=== PATIENT | female | born 2000 | race African-American/Black ===

== ENCOUNTER 2020-04-18 17:52 | Emergency (ER) | payer OTHER ==
[2020-04-18 18:12] VITALS: BMI 25.8
[2020-04-18] MEDS ORDERED: ACETAMINOPHEN 500 MG TABLET (FP) PO ONE (18:31)
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
[2020-04-18] MEDS ORDERED: ACETAMINOPHEN 325 MG TABLET (FP) ONE (18:41)
[2020-04-18 20:59] VITALS: BP 120/76; PULSE 91; TEMP 98.1
== END 2020-04-18 20:45 | disposition home or self-care (01) ==
LOC: JER 17:52
DX: M54.2 Cervicalgia (principal); V87.7XXA Person injured in collision between other specified motor vehicles (traffic), initial encounter
CPT/HCPCS: 76815-TC; 99284-25

== ENCOUNTER 2020-07-30 10:25 | Inpatient (IN) | payer OTHER ==
[2020-07-30] MEDS ORDERED: DINOPROSTONE 10 MG VAGINAL SUPPOSITORY VG ONE (11:00)
[2020-07-30 11:37] VITALS: BMI 32.0
[2020-07-30 12:09] LABS: BASO % 0.5 % (0-2.0); EOS % 0.5 % (0-4.5); HEMATOCRIT 32.1 % (32.4-45.2); HEMOGLOBIN 10.8 GM/dL (10.7-15.3); LYMPH % 17.1 % (8-40); MCH 23.1 pg (25.7-33.7); MCHC 33.6 g/dl (32.0-36.0); MEAN CELL VOLUME 68.8 fl (80-96); MEAN PLT VOLUME 12.2 fl (7.5-11.1); MONO % 13.2 % (3.8-10.2); NEUT % 68.7 % (42.8-82.8); PLATELET COUNT 199 K/MM3 (134-434); RBC 4.67 M/mm3 (3.60-5.2); RDW 15.2 % (11.6-15.6); WHITE BLOOD COUNT 6.2 K/mm3 (4.0-10.0)
[2020-07-30 12:11] LABS: RETICULOCYTES 1.89 % (0.5-1.5)
[2020-07-30 12:23] LABS: INR 0.96 (0.83-1.09); PROTHROMBIN TIME (PATIENT) 11.8 SEC (9.7-13.0)
[2020-07-30 12:25] LABS: ACTIVATED PTT 27.9 SECONDS (25.2-36.5)
[2020-07-30 12:29] LABS: BLOOD UREA NITROGEN 10.4 mg/dL (7-18); CALCIUM 9.3 mg/dL (8.5-10.1); GAMMA GLUTAMYL TRANSPEPTIDASE 13 U/L (5-85)
[2020-07-30 12:32] LABS: SGOT/AST 16 U/L (15-37); SGPT/ALT 11 U/L (13-61); URIC ACID 5.1 mg/dL (2.6-7.2)
[2020-07-30 12:33] LABS: CREATININE 0.7 mg/dL (0.55-1.3)
[2020-07-30 12:43] LABS: EPI CELLS >36 /uL (0-25.1); HYALINE CASTS 3 /uL (0-3.1); URINE APPEARANCE Error; URINE BACTERIA 2942 /uL (0-1359); URINE BILIRUBIN NEGATIVE (NEGATIVE); URINE COLOR YELLOW; URINE GLUCOSE (UA) NEGATIVE (NEGATIVE); URINE KETONE NEGATIVE (NEGATIVE); URINE LEUK ESTERASE NEGATIVE (NEGATIVE); URINE NITRITE NEGATIVE (NEGATIVE); URINE PROTEIN 1+ (NEGATIVE); URINE RBC 11 /uL (0-23.9); URINE UROBILINOGEN 0.2 mg/dL (0.2-1.0)
[2020-07-30] MEDS ORDERED: INSULIN (LEVEMIR) 100 UNITS/ML UNITS SQ ONE (12:55)
[2020-07-30] MEDS: ELECTROLYTE-148 SOLN 1,000 ML IV SCH (16:40)
[2020-07-30] MEDS: DEXTROSE 5%-NORMAL SALINE 1,000 ML IV SCH (17:00)
[2020-07-30] MEDS ORDERED: PROMETHAZINE HCL 25 MG/1 ML VIAL ONE (21:27)
[2020-07-30] MEDS ORDERED: BUTORPHANOL TARTRATE 1 MG/ML VIAL ONE ×2 (21:27)
[2020-07-30] MEDS ORDERED: BUTORPHANOL TARTRATE 2 MG/ML VIAL IM PRN (21:34)
[2020-07-30] MEDS ORDERED: PROMETHAZINE HCL 25 MG/1 ML VIAL IVPB PRN (21:35)
[2020-07-30] MEDS ORDERED: OXYTOCIN 20 UNITS in 0.9% NS 20 UNIT/1,000 ML INFUS.BAG IV ONE (22:52)
[2020-07-30] MEDS ORDERED: OXYTOCIN 30 UNITS in 0.9% NS 30 UNIT/500 ML INFUS.BAG IVPB ONE (22:56)
[2020-07-30] MEDS: OXYTOCIN 30 UNITS in 0.9% NS 30 UNIT/500 ML INFUS.BAG IVPB SCH (23:00)
[2020-07-31] MEDS ORDERED: FENTANYL/BUPIVACAINE/NS/PF - PCEA - 50 ML DISP.SYRIN EP ONE ×3 (10:34→20:07)
[2020-07-31] MEDS ORDERED: PCA PUMP NR ONE ×2 (10:34→20:07)
[2020-07-31] MEDS: SODIUM CHLORIDE 1,000 ML IV SCH ×5 (10:40→11:50)
[2020-07-31] MEDS ORDERED: BUPIVACAINE HCL/PF 0.25% (2.5MG/ML) 10 ML VIAL ONE ×2 (10:43→15:56)
[2020-07-31] MEDS: FENTANYL/BUPIVACAINE/NS/PF - PCEA - 50 ML DISP.SYRIN EP SCH ×2 (11:05→15:49)
[2020-07-31] MEDS ORDERED: NALOXONE HCL 0.4 MG/ML VIAL IVPUSH PRN (11:11)
[2020-07-31] MEDS ORDERED: SODIUM CHLORIDE 100 ML IVPB ONE ×2 (11:31→15:28)
[2020-07-31] MEDS ORDERED: AMPICILLIN SODIUM 2 GM VIAL ONE (11:31)
[2020-07-31] MEDS ORDERED: AMPICILLIN - 2 GM in SODIUM CHLORIDE 100 ML IVPB ONE (12:30)
[2020-07-31] MEDS: DEXTROSE 5%-NORMAL SALINE 1,000 ML IV SCH (13:56)
[2020-07-31] MEDS ORDERED: AMPICILLIN SODIUM 1 GM VIAL ONE ×2 (15:28→20:02)
[2020-07-31] MEDS: AMPICILLIN - 1 GM in SODIUM CHLORIDE 100 ML IVPB SCH ×2 (16:07→20:16)
[2020-07-31] MEDS ORDERED: WITCH HAZEL 50% (TUCKS) 40 PAD/JAR PAD TP PRN (21:35)
[2020-07-31] MEDS ORDERED: METHYLERGONOVINE MALEATE 0.2 MG/1 ML AMP IM PRN (21:35)
[2020-07-31] MEDS ORDERED: IBUPROFEN 800 MG/8 ML IJ IVPB PRN (21:35)
[2020-07-31] MEDS ORDERED: diphenhydrAMINE HCL 25 MG CAPSULE (FP) PO PRN (21:35)
[2020-07-31] MEDS ORDERED: BENZOCAINE 20% 57 GM BOTTLE TP PRN (21:35)
[2020-07-31] MEDS ORDERED: BENZOCAINE 28 GM HEMORRHOIDAL OINTMENT PR PRN (21:35)
[2020-07-31] MEDS ORDERED: OXYTOCIN 20 UNITS in 0.9% NS 20 UNIT/1,000 ML INFUS.BAG IV ONE (22:14)
[2020-07-31] MEDS ORDERED: CEFAZOLIN 2 GM/D5W 2 GM/50 ML ML IVPB ONE (22:14)
[2020-07-31] MEDS ORDERED: LIDO 2%/EPI 1:200000 PRESRVFRE (20 ML SDVIAL) ONE (22:14)
[2020-07-31] MEDS ORDERED: KETOROLAC TROMETHAMINE 30 MG/1 ML VIAL ONE (22:16)
[2020-07-31] MEDS ORDERED: ONDANSETRON 4 MG/2 ML VIAL ONE (22:16)
[2020-07-31] MEDS ORDERED: OXYTOCIN 10 UNITS/ML VIAL ONE (22:37)
[2020-07-31] MEDS ORDERED: morphine SULFATE/PF 1 MG/2 ML (2cc Syringe - QUVA) ONE ×3 (22:43)
[2020-07-31] MEDS: ELECTROLYTE-148 SOLN 1,000 ML IV SCH (23:00)
[2020-08-01 00:20] LABS: CORD PCO2 43.3 mmHg (30-78); CORD pH 7.286 (7.14-7.44)
[2020-08-01 00:21] LABS: CORD BASE EXCESS -6.3 mmol/L (0-2); CORD HCO3 20.2 mmHg (20-29)
[2020-08-01 00:30] LABS: CORD BASE EXCESS -7.2 mmol/L (0-2); CORD HCO3 21.8 mmHg (20-29); CORD PCO2 59.1 mmHg (30-78); CORD pH 7.185 (7.14-7.44)
[2020-08-01] MEDS: AMPICILLIN - 1 GM in SODIUM CHLORIDE 100 ML IVPB SCH (00:34)
[2020-08-01] MEDS: OXYTOCIN 30 UNITS in 0.9% NS 30 UNIT/500 ML INFUS.BAG IVPB SCH (00:36)
[2020-08-01] MEDS ORDERED: ONDANSETRON 4 MG/2 ML VIAL IVPUSH PRN (07:34)
[2020-08-01 09:31] LABS: HEMATOCRIT 26.9 % (32.4-45.2); HEMOGLOBIN 9.1 GM/dL (10.7-15.3); MCHC 33.8 g/dl (32.0-36.0); MEAN CELL VOLUME 68.1 fl (80-96); PLATELET COUNT 175 K/MM3 (134-434); RBC 3.95 M/mm3 (3.60-5.2); RDW 15.4 % (11.6-15.6)
[2020-08-01] MEDS: oxyCODONE HCL 5 MG TABLET PO PRN (21:17)
[2020-08-01] MEDS: SIMETHICONE 80 MG TAB.CHEW (FP) PO PRN (21:17)
[2020-08-01] MEDS: ACETAMINOPHEN 325 MG TABLET (FP) PO PRN (21:18)
[2020-08-01] MEDS ORDERED: HYDROmorphone HCL 2 MG TABLET PO PRN (21:35)
[2020-08-01] MEDS ORDERED: oxyCODONE HCL 5 MG TABLET PO PRN (21:35)
[2020-08-01] MEDS ORDERED: BISACODYL 10 MG SUPP.RECT PR PRN (21:35)
[2020-08-02] MEDS: oxyCODONE HCL 5 MG TABLET PO PRN (03:33)
[2020-08-02] MEDS: ACETAMINOPHEN 325 MG TABLET (FP) PO PRN ×4 (03:34→23:09)
[2020-08-02] MEDS: SIMETHICONE 80 MG TAB.CHEW (FP) PO PRN ×4 (03:35→23:09)
[2020-08-02] MEDS: IBUPROFEN 600 MG TABLET (FP) PO PRN ×3 (10:12→23:10)
[2020-08-02 21:32] VITALS: TEMP 98.2
[2020-08-02] MEDS ORDERED: SENNOSIDES/DOCUSATE COMBO (SENNA PLUS) TABLET (UD) PO PRN (22:00)
[2020-08-03 08:36] LABS: HEMATOCRIT 23.8 % (32.4-45.2); HEMOGLOBIN 8.1 GM/dL (10.7-15.3); MCHC 33.8 g/dl (32.0-36.0); MEAN PLT VOLUME 10.7 fl (7.5-11.1); PLATELET COUNT 175 K/MM3 (134-434); RBC 3.51 M/mm3 (3.60-5.2); RDW 15.2 % (11.6-15.6); WHITE BLOOD COUNT 8.7 K/mm3 (4.0-10.0)
[2020-08-03] MEDS: IBUPROFEN 600 MG TABLET (FP) PO PRN (08:42)
[2020-08-03] MEDS: ACETAMINOPHEN 325 MG TABLET (FP) PO PRN (08:42)
[2020-08-03 10:53] VITALS: BP 125/85; PULSE 90
== END 2020-08-03 14:10 | disposition home or self-care (01) | DRG 540 ==
LOC: JLDR 10:25 → J3W 08-01 00:52
PROVIDERS: ADMIT Obstetrics & Gynecology; ATTEND Obstetrics & Gynecology
PROC: 3E0P7VZ Introduction of Hormone into Female Reproductive, Via Natural or Artificial Opening (ICD-10-PCS; 2020-07-30)
PROC: 10D00Z1 Extraction of Products of Conception, Low, Open Approach (ICD-10-PCS; principal; 2020-07-31)
DX: O24.414 Gestational diabetes mellitus in pregnancy, insulin controlled (principal); O16.3 Unspecified maternal hypertension, third trimester; Z3A.37 37 weeks gestation of pregnancy; O62.0 Primary inadequate contractions; Z37.0 Single live birth; Z91.018 Allergy to other foods
CPT/HCPCS: 36415; 36600; 80048; 81003; 82803; 82962; 82977; 83010; 83036; 84450; 84460; 84550; 85025; 85027; 85032; 85045; 85610; 85730; 86780; 86850; 86900; 86901; 87389

== ENCOUNTER 2021-01-19 05:55 | Emergency (ER) | payer OTHER ==
[2021-01-19 06:20] VITALS: BP 137/87; PULSE 77; TEMP 98.2; BMI 24.7
[2021-01-19] MEDS ORDERED: LIDOCAINE HCL 1%, 10 MG/ML (20ML VIAL) ONE (08:10)
[2021-01-19] MEDS ORDERED: LIDOCAINE HCL 1%, 10 MG/ML (50 mL VIAL) INF ONE (08:11)
[2021-01-19] MEDS ORDERED: MUPIROCIN 2% TOPICAL OINTMENT 22 GM TUBE TP SCH (10:00)
== END 2021-01-19 08:57 | disposition home or self-care (01) ==
LOC: JER 05:55
PROC: 0H9FXZZ Drainage of Right Hand Skin, External Approach (ICD-10-PCS; principal; 2021-01-19)
DX: L03.011 Cellulitis of right finger (principal)
CPT/HCPCS: 99284-25